=== PATIENT | male | born 1970 | race African-American/Black ===

== ENCOUNTER 2016-08-18 17:32 | Emergency (ER) | payer OTHER ==
--- NOTE | ~2016-08-18 | ER ---
PATIENT'S NAME: TATE, [facility] AGE: 46 Y [address] ROOM: [place] [address] LOCATION: [facility] ADMIT DATE: 08/18/2016 ER/Outpatient Report DISCHARGE DATE: 08/18/2016 FAMILY PHYSICIAN: PHYSICIAN, NO ATTENDING PHYSICIAN: Bethany Zeng Time of Arrival: 1739 hours. Time of Evaluation: 1745 hours. CHIEF COMPLAINT: Right finger pain. HISTORY OF PRESENT ILLNESS: The patient is a 46-year-old male who presents to the emergency department today with a chief complaint of right finger pain. He reports it is a sharp pain, it is worse with movement, currently 6/10 in severity. He reports he just woke up this morning feeling like this. He feels like he had it bent backwards; however, he does not remember having any episodes where he bent it backwards at all. He reports he had a trauma when he was in 20s but nothing recently. PAST MEDICAL HISTORY: Asthma. PAST SURGICAL HISTORY: None. SOCIAL HISTORY: The patient denies any tobacco, alcohol, or illicit drug use. ALLERGIES: NO KNOWN DRUG ALLERGIES. MEDICATIONS: Advair. PRIMARY CARE DOCTOR: None. REVIEW OF SYSTEMS: All systems are reviewed by myself and are negative with the exception of those discussed in HPI and past medical history. PHYSICAL EXAMINATION: VITAL SIGNS: Weight 80 kilograms, blood pressure 158/88, pulse 75, respiratory PATIENT'S NAME: SATHISH TATE [facility] AGE: 46 Y [address] ROOM: [place] [address] LOCATION: [facility] ADMIT DATE: 08/18/2016 ER/Outpatient Report DISCHARGE DATE: 08/18/2016 FAMILY PHYSICIAN: PHYSICIAN, NO ATTENDING PHYSICIAN: Bethany Zeng rate 16, temperature 97.8, oxygen saturation 95% on room air. GENERAL: The patient is a 46-year-old male, appears stated age. No acute distress at this time. HEENT: Head, normocephalic and atraumatic. NECK: Supple. No nuchal rigidity. CARDIOVASCULAR: Regular rate and rhythm. No murmurs, rubs, or gallops. LUNGS: Clear to auscultation bilaterally. No wheezes, rales, or rhonchi. ABDOMEN: Soft, nontender, and nondistended. No rebound, rigidity, or guarding. MUSCULOSKELETAL: The patient does have tenderness to palpation of the 5th metatarsal into the 5th MCP joints as well as into the proximal phalanx of the right little finger. He does have decreased range of motion. Sensation is still intact. SKIN: Warm and dry. Capillary refill is less than 2 seconds. LABORATORY DATA AND X-RAYS: X-ray of the right hand is obtained. I see no evidence of fracture or dislocation. Radiological overread is pending. IMPRESSION: 1. Acute right hand pain, suspect musculoskeletal strain. 2. Initial visit. EMERGENCY DEPARTMENT COURSE: The patient was brought back to the emergency cart. She was seen and evaluated by myself. X-rays obtained as described above. The patient denies any history of knowing what happened. I see no evidence of injury noted on x- ray. I have discussed with the patient rest, ice, compression, elevation. We have placed the patient in a splint. I have recommended Tylenol or ibuprofen for pain. I have written a work note. I have asked the patient follows up with primary care doctor in 2 to 3 days if continues to have pain. I have discussed different primary care doctor options here in the [place] area. I have also discussed that if there is no improvement, she follow up with an orthopedic surgeon preferably a hand surgeon in 7 to 10 days. The patient is agreeable, he is without further questions at this time. DISPOSITION: The patient discharged home in good condition. DO LUIS ALFREDO MARTINEZ/juliane PATIENT'S NAME: SATHISH TATE [facility] AGE: 46 Y [address] ROOM: [place] [address] LOCATION: ED ADMIT DATE: 08/18/2016 ER/Outpatient Report DISCHARGE DATE: 08/18/2016 FAMILY PHYSICIAN: PHYSICIAN, NO ATTENDING PHYSICIAN: Bethany Zeng /[id number] d: 08/18/162226 t: 08/19/161922, OUTPATIENT REPORT
== END 2016-08-18 18:15 | disposition disaster alternative care site (69) ==
LOC: GMED 17:32
DX: M79.644 Pain in right finger(s) (principal); M79.641 Pain in right hand; J45.909 Unspecified asthma, uncomplicated; Z79.899 Other long term (current) drug therapy